=== PATIENT | male | born 1985 | race American Indian/Alaskan Native ===

== ENCOUNTER 2021-03-29 01:26 | Emergency (ER) | payer SELFPAY ==
[2021-03-29] MEDS ORDERED: ACETAMINOPHEN 500 MG TAB PO ONE (01:54)
[2021-03-29 02:18] LABS: Basophils % (Auto) 0.6 % (0.0-1.8); Eosinophils # (Auto) 0.5 K/mm3 (0.0-0.4); Eosinophils % (Auto) 8.4 % (0.0-4.3); Hematocrit 41.1 % (35.5-45.6); Hemoglobin 13.5 gm/dl (11.8-15.2); Lymphocytes # (Auto) 1.6 K/mm3 (1.2-5.4); Lymphocytes % (Auto) 27.8 % (13.4-35.0); Mean Corpuscular HGB Conc 33 % (32-34); Mean Corpuscular Volume 91 fl (84-94); Monocytes # (Auto) 0.7 K/mm3 (0.0-0.8); Monocytes % (Auto) 11.3 % (0.0-7.3); Platelet Count 296 K/mm3 (140-440); Red Blood Count 4.53 M/mm3 (3.65-5.03); Red Cell Distribution Width 13.6 % (13.2-15.2)
[2021-03-29 02:36] LABS: BUN/Creatinine Ratio 16; Blood Urea Nitrogen 14 mg/dL (9-20); Calcium 8.9 mg/dL (8.4-10.2); Hemolysis Index 4
--- NOTE | 2021-03-29 03:00 | Emergency Department Report ---
ED Psych HPI - General Chief Complaint: Psych Stated Complaint: MANIC, C/O FOOT TINGLING Time Seen by Provider: 03/29/21 01:46 Source: patient, EMS Mode of arrival: Stretcher - History of Present Illness Initial Comments: Chief complaint: I just need my medication. HPI: This is a 36-year-old male with history of mental health disorder presents with joint pain and suicidal ideation. He has been depressed. He denies any trauma. Otherwise poor historian. No expressed plan to harm himself or others. MD Complaint: suicidal ideation, feels depressed -: unknown Associated Psychiatric Symptoms: depression, suicidal ideation History of same: Yes Quality: constant Improves With: none Worsens With: none Context: not taking psychiatric Associated Symptoms: denies other symptoms Treatments Prior to Arrival: none If Self Harm: admits thoughts of - Related Data Allergies Allergy/AdvReac Type Severity Reaction Status Date / Time haloperidol [From Haldol] AdvReac Itching Verified 03/29/21 01:32 ED Review of Systems ROS: Stated complaint: MANIC, C/O FOOT TINGLING Other details as noted in HPI Comment: All other systems reviewed and negative Constitutional: denies: chills, fever, malaise Respiratory: denies: cough, shortness of breath Cardiovascular: denies: chest pain Gastrointestinal: denies: abdominal pain, nausea, vomiting Psychiatric: depression, suicidal thoughts. denies: auditory hallucinations, visual hallucinations, homicidal thoughts ED Past Medical Hx - Past Medical History Previous Medical History?: Yes - Social History Smoking Status: Current Every Day Smoker Substance Use Type: None ED Physical Exam - General Limitations: No Limitations General appearance: alert, in no apparent distress - Head Head exam: Present: atraumatic, normocephalic - Eye Eye exam: Present: normal appearance - ENT ENT exam: Present: mucous membranes moist - Neck Neck exam: Present: normal inspection, full ROM - Respiratory Respiratory exam: Present: normal lung sounds bilaterally. Absent: respiratory distress, wheezes, rales, rhonchi - Cardiovascular Cardiovascular Exam: Present: regular rate, normal rhythm, normal heart sounds. Absent: systolic murmur, diastolic murmur, rubs, gallop - GI/Abdominal GI/Abdominal exam: Present: soft, normal bowel sounds. Absent: distended, tenderness, guarding, rebound - Rectal Rectal exam: Present: deferred - Extremities Exam Extremities exam: Present: normal inspection, full ROM. Absent: tenderness - Back Exam Back exam: Present: normal inspection - Neurological Exam Neurological exam: Present: alert, oriented X3 - Psychiatric Psychiatric exam: Present: normal affect, normal mood, suicidal ideation, other (Disorganized, circular speech) - Skin Skin exam: Present: warm, dry, intact, normal color. Absent: rash ED Course Vital Signs 03/29/21 03/29/21 03/29/21 02:35 02:44 03:44 Temperature 98.1 F Pulse Rate 76 Respiratory 18 18 18 Rate Blood Pressure 119/67 [Left] O2 Sat by Pulse 96 Oximetry ED Medical Decision Making - Lab Data Result diagrams: 03/29/21 02:05 03/29/21 02:05 Laboratory Results - last 24 hr 03/29/21 03/29/21 03/29/21 02:05 02:05 02:05 WBC 5.9 RBC 4.53 Hgb 13.5 Hct 41.1 MCV 91 MCH 30 MCHC 33 RDW 13.6 Plt Count 296 Lymph % (Auto) 27.8 Carver % (Auto) 11.3 H Eos % (Auto) 8.4 H Baso % (Auto) 0.6 Lymph # (Auto) 1.6 Carver # (Auto) 0.7 Eos # (Auto) 0.5 H Baso # (Auto) 0.0 Seg Neutrophils % 51.9 Seg Neutrophils # 3.1 Sodium 140 Potassium 4.1 Chloride 106.0 Carbon Dioxide 23 Anion Gap 15 BUN 14 Creatinine 0.9 Estimated GFR > 60 BUN/Creatinine Ratio 16 Glucose 94 Calcium 8.9 Salicylates < 0.3 L Acetaminophen Plasma/Serum Alcohol 03/29/21 03/29/21 02:05 02:05 WBC RBC Hgb Hct MCV MCH MCHC RDW Plt Count Lymph % (Auto) Carver % (Auto) Eos % (Auto) Baso % (Auto) Lymph # (Auto) Carver # (Auto) Eos # (Auto) Baso # (Auto) Seg Neutrophils % Seg Neutrophils # Sodium Potassium Chloride Carbon Dioxide Anion Gap BUN Creatinine Estimated GFR BUN/Creatinine Ratio Glucose Calcium Salicylates Acetaminophen 5.0 L Plasma/Serum Alcohol < 0.01 - Medical Decision Making This is a 36-year-old male with unspecified mental health disorder who presents with suicidal ideation. He states that he needs a medication refill. He is medically clear for psychiatric care. No indication for involuntary hold at this time. Report of shoulder, foot pain without evidence of trauma. Possibly due to gout possibly due to osteoarthritis. No evidence of infection I have reviewed labs including CBC chemistry serum toxicology all within normal limits. Critical care attestation.: If time is entered above; I have spent that time in minutes in the direct care of this critically ill patient, excluding procedure time. ED Disposition Clinical Impression: Acute depression, History of gout Disposition: 30 STILL A PATIENT Is pt being admited?: No Does the pt Need Aspirin: No Condition: Stable
[2021-03-29 08:50] LABS: Bilirubin,Urine NEG (Negative); Blood,Urine NEG (Negative); Color,Urine Yellow (Yellow); Hyaline Casts,Urine 1 /LPF; Mucus,Urine FEW /HPF; Protein,Urine <15 mg/dL mg/dL (Negative); RBC,Urine < 1.0 /HPF (0.0-6.0); Urobilinogen,Urine < 2.0 mg/dL (<2.0)
[2021-03-29 08:58] LABS: Amphetamine Screen,Urine Negative; Benzodiazepines Screen,Urine Negative; Cocaine Screen,Urine Negative; Methadone Screen,Urine Negative
[2021-03-29 09:34] LABS: Cannabinoid Screen,Urine Positive; Opiate Screen,Urine Negative
[2021-03-29] MEDS ORDERED: LORazepam 2 MG/ML VIAL IM PRN (11:30)
[2021-03-29] MEDS ORDERED: diphenhydrAMINE 25 MG CAP PO PRN (11:30)
[2021-03-29] MEDS ORDERED: ZIPRASIDONE MESYLATE 20 MG VIAL IM PRN (11:30)
--- NOTE | 2021-03-29 11:32 | Event Note ---
Date: 03/29/21 The patient was evaluated in the emergency department for symptoms described in the history of present illness. He/she was evaluated in the context of the global COVID-19 pandemic, which necessitated consideration that the patient might be at risk for infection with the virus that causes COVID-19. Institutional protocols and algorithms that pertain to the evaluation of patients at risk for COVID-19 are in a state of rapid change based on information released by regulatory bodies including the CDC and federal and state organizations. These policies and algorithms were followed during the patient's care in the emergency department. Please note that these policies, procedures and recommendations changed on a rapid basis. Laboratory studies, vital signs, nursing documentation, ER documentation, and psychiatric documentation are reviewed and appreciated. Nursing team endorses concern that this patient is psychotic and disorganized The patient is awake and ambulating and presents as floridly psychotic and incapacitated Psychiatry team have recommended a 1013 which I agree with. Have ordered and filled out 1013. Have recommended to nursing team that this patient be placed in our psychiatric holding area. As needed Casie and Benjydon ordered given his report of haloperidol allergy. The patient was deemed medically suitable for psychiatric disposition and placement during his initial ER evaluation. The patient continues to remain medically suitable for psychiatric placement and disposition. He is currently pending psychiatric placement.
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
[2021-03-30 09:49] VITALS: BP 142/90
--- NOTE | 2021-03-30 10:36 | Progress Note ---
Subjective - Reason for Consult Consult date: 03/30/21 Reason for consult: Mental health evaluation - Chief Complaint Chief complaint: The patient was seen this morning. He is calm, alert and oriented x3. The patient reports that he is feeling better. He denies any current suicidal/homicidal ideation and denies hallucinations. REVIEW OF SYSTEMS Constitutional: Negative for weight loss ENT: Negative for stridor Respiratory: Negative for cough or hemoptysis All other systems reviewed and are negative MENTAL STATUS EXAMINATION General Appearance and Behavior: Age appropriate, good hygiene, wearing appropriate clothes. calm, cooperative Cooperation: Cooperative Psychomotor Behavior: Psychomotor normal Mood: "ok" Affect and affective range: congruent with stated mood Thought Process: Goal directed Thought Content: reality oriented Speech:Normal Suicidal Ideation: Denies Homicidal Ideation: Denies Hallucinations: Denies Delusions:None Impulse Control: Limited Insight and Judgment: Limited insight and fair judgment Memory: Limited Attention: distracted Orientation: a/o x 3 Assessment (1) Bipolar Disorder (2) Polysubstance use disorder Current Visit: Yes Status: Acute Continue home medications. DC 1013 Treatment Plan Continue home medications. Start Seroquel 50mg po QHS Risks, benefits and alternatives of medications discussed with the patient, questions answered and consent obtained from patient. PSYCHOTHERAPY: Supportive psychotherapy provided MEDICAL: Per primary team DELIRIUM PRECAUTIONS: Please re-orient patient frequently, keep lights on during the day, and minimize benzodiazepines and opiates as these medications could worsen patient's confusion. 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 Microbiological Laboratory Technician will provide patient with psychiatric out patient resources. Will sign off. Please contact with any questions and/or concerns. Case discussed with Dr. Marcelino who agrees with current disposition Medications and Allergies Mental Status Exam - Vital signs Last Vital Signs Temp 98.4 F 03/30/21 09:40 Pulse 63 03/30/21 09:40 Resp 16 03/30/21 09:40 BP 142/90 03/30/21 09:40 Pulse Ox 98 03/30/21 09:40
== END 2021-03-30 11:06 | disposition home or self-care (01) ==
LOC: ED 01:26
DX: F32.A Depression, unspecified (principal); M10.9 Gout, unspecified; F17.200 Nicotine dependence, unspecified, uncomplicated; Z88.8 Allergy status to other drugs, medicaments and biological substances; Z20.822 Contact with and (suspected) exposure to COVID-19
CPT/HCPCS: 36415; 80048; 80307; 81001; 85025; 96372; 99284; J2060; J3486; U0003; 80320; G0480